=== PATIENT | male | born 1975 | race Two or more races ===

== ENCOUNTER 2024-06-20 06:34 | Day surgery (SDC) | payer OTHER ==
[2024-06-16 09:49] VITALS: BP 145/88
[2024-06-16 09:50] LABS: HEMATOCRIT 46.3 % (39.0-48.0); HEMOGLOBIN 15.9 g/dL (13-16.00); MEAN CELL VOLUME 93.4 fL (80.0-100.00); MEAN CORPUSCULAR HGB CONC 34.3 g/dl (32.0-36.0); PLATELET COUNT 238 K/uL (150-450); RED BLOOD COUNT 4.96 M/uL (4.00-6.00); RED CELL DISTRIBUTION WIDTH 12.3 % (11.5-14.5)
[2024-06-16 09:52] LABS: URINE APPEARANCE Clear; URINE BILIRRUBIN Negative (NEGATIVE); URINE BLOOD Negative; URINE COLOR Yellow; URINE GLUCOSE Negative (NEGATIVE); URINE KETONE Negative (NEGATIVE); URINE LEUKOCYTE Negative; URINE NITRATE Negative; URINE PROTEIN Negative (NEGATIVE); URINE UROBILINOGEN 0.2 E.U./dl
[2024-06-16 09:56] LABS: URINE RBC 7.7 uL (0.0-20.8)
[2024-06-16 09:58] LABS: URINE BACTERIA 3.7 uL (0.0-1933); URINE EPITHELIAL CELLS 0.9 uL (0.0-38.8); URINE WBC 1.3 uL (0.0-23.2)
[2024-06-16 10:13] LABS: INR 0.99; PARTIAL THROMBOPLASTIN TIME 33.1 SECONDS (22.0-34.0)
[2024-06-16 10:16] LABS: PROTHROMBIN TIME 10.8 SECONDS (9.0-11.5)
[2024-06-16 10:51] LABS: ALBUMIN 4.1 gm/dL (3.4-5.0); CALCIUM 9.2 mg/dL (8.5-10.1); CREATININE SERUM 0.92 mg/dL (0.70-1.30); GFR 88.18; PHOSPHOROUS 3.2 mg/dL (2.5-4.9); POTASSIUM 4.64 mEq/L (3.5-5.1)
[~2024-06-20] VITALS: Ht 172.7 cm; Wt 93.0 kg
[2024-06-20] MEDS ORDERED: POVIDONE-IODINE SCRUB 118 ML BOTT TP ONE (14:30)
[2024-06-20] MEDS ORDERED: BACITRACIN ZINC 0.9 GM OINT.PACKET TP ONE (14:30)
[2024-06-20] MEDS ORDERED: CEFAZOLIN SODIUM 1,000 MG VIAL IV ONE (14:30)
[2024-06-20] MEDS ORDERED: EPINEPHRINE HCL/PF 1 MG/ML AMPUL IV PUSH ONE (14:30)
[2024-06-20] MEDS ORDERED: LIDOCAINE HCL 1%/EPINEPHRINE 20ML VIAL IJ ONE (14:30)
[2024-06-20] MEDS ORDERED: POVIDONE-IODINE 118 ML BOTT TP ONE (14:30)
[2024-06-20] MEDS ORDERED: CIPROFLOXACIN2.5 ML OTIC (15:15)
[2024-06-20] MEDS ORDERED: CEPHALEXIN500 MG PO (15:15)
[2024-06-20] MEDS ORDERED: MORPHINE SULFATE 4 MG/ML VIAL IV ONE (16:00)
[2024-06-20] MEDS ORDERED: ONDANSETRON HCL 2 MG/ML VIAL IV ONE (17:10)
== END 2024-06-20 18:00 | disposition home or self-care (01) ==
LOC: CIR.AMB 06:34
PROVIDERS: ATTEND Otolaryngology Otology & Neurotology
DX: H70.12 Chronic mastoiditis, left ear (principal); H90.12 Conductive hearing loss, unilateral, left ear, with unrestricted hearing on the contralateral side; H74.12 Adhesive left middle ear disease